=== PATIENT | female | born 1935 | race Caucasian/White ===

== ENCOUNTER → 2019-07-23 12:42 | Outpatient (CLI) | payer OTHER, SELFPAY ==
--- NOTE | 2019-07-23 12:44 | DI.MRI.S_ITS ---
PROCEDURE: MR SHOULDER RT WO CON INDICATIONS: decreased ROM and pain, suspect rotator cuff injury TECHNIQUE: Noncontrast oblique coronal T2 fast spin echo with fat saturation, oblique sagittal T1 spin echo and T2 fast spin echo with fat saturation, axial T1 spin echo and T2 fast spin echo with fat saturation through the shoulder. COMPARISON: None. FINDINGS: Image quality: Excellent. Rotator cuff: Supraspinatus tendinopathy is present with marked thickening. There is a high-grade partial-thickness bursal side tear measuring approximately 5 mm seen on coronal image 12 series 8. Infraspinatus tendinopathy with low-grade partial-thickness articular and bursal sided tear. The teres minor appears intact. Subscapularis tendinopathy and mild thickening. No definite atrophy of the rotator cuff musculature although there is fatty infiltration of the supraspinatus and infraspinatus muscles. Bones and bursae: No bone marrow contusions or fractures. Moderate acromioclavicular joint degeneration. The acromion demonstrates conventional anatomy, without an os acromiale. Severe subacromial-subdeltoid bursitis. Capsule and soft tissues: Labrum appears grossly intact. The long head of the biceps tendon demonstrates normal location and morphology. The rotator interval appears normal, without fibrosis. The coracohumeral ligament is normal in thickness. IMPRESSION: High-grade bursal sided partial-thickness tear of the supraspinatus tendon in a background of severe tendinopathy and thickening. Associated severe subacromial-subdeltoid bursitis. Infraspinatus tendinopathy with low-grade partial-thickness articular and bursal sided tear. Mild subscapularis tendinopathy. Dictated by: Stanton Doss M.D. on 07/23/2019 at 16:15 Approved by: Stanton Doss M.D. on 07/23/2019 at 16:21
== END ==
PROVIDERS: Family Provider Family Medicine; PCP Family Medicine; Visit Provider Physician Assistant
DX: M25.511 Pain in right shoulder (principal); M75.111 Incomplete rotator cuff tear or rupture of right shoulder, not specified as traumatic; M75.51 Bursitis of right shoulder; M67.911 Unspecified disorder of synovium and tendon, right shoulder
CPT/HCPCS: 73221

== ENCOUNTER → 2019-09-01 09:41 | Outpatient (CLI) | payer OTHER, SELFPAY ==
--- NOTE | 2019-09-01 09:43 | DI.NM.S_ITS ---
PROCEDURE: NM KARLA PERF SPECT REST & STR Rest and exercise myocardial perfusion SPECT with gated imaging and ejection fraction RADIOPHARMACEUTICAL: 27.1 mCi Tc-99m sestamibi IV at rest and 25.8 mCi Tc-99m sestamibi IV at peak exercise. A [id number]-crgylnir was performed. INDICATIONS: Shortness of breath TECHNIQUE: Radiopharmaceutical was injected at peak stress test, and also at rest. SPECT images were obtained. SPECT myocardial perfusion images were displayed in short axis, horizontal long axis, and vertical long axis views. Gated images were reviewed using NPC III software. COMPARISON: None. CARDIAC STRESS: A standard Ashish treadmill exercise tolerance test was performed by the patient under the supervision of an attending staff. The patient exercised for 4 minutes and10 seconds; functional aerobic impairment (MAGDY) is 0 %. Hemodynamic data: There is normal blood pressure and heart rate response to exercise stress. Patient achieved 92% of maximum predicted heart rate at peak exercise. Symptoms: Patient denied chest pain during exercise. EKG: Up to 1mm upsloping ST depression at peak exercise. No diagnostic EKG changes of ischemia; no ectopy. FINDINGS: Raw data: There is good myocardial labeling by radiotracer. No significant motion artifacts. Zfwk-yh-cxati ratio is 0.36 (normal is less than 0.38 for sestamibi tracer, and less than 0.50 for thallium tracer). Left ventricle function: Gated images demonstrate normal left ventricle wall thickening. No segmental wall motion abnormality. No transient ischemic dilation; TID is 1.11 (normal less than 1.3). The left ventricle resting end-diastolic volume is 59 mL. Left ventricle stress ejection fraction is >75% ; normal values are above 45%. Myocardial perfusion: There is normal distribution of activity in the left ventricular myocardium. No fixed or reversible perfusion defects. IMPRESSION: -Normal myocardial perfusion study. -Fair exercise capacity. -Low risk study. -Small, hypercontractile left ventricle, overestimating the LVEF. Dictated by: Jon Coles M.D. on 09/03/2019 at 17:52 Approved by: Jon Coles M.D. on 09/03/2019 at 17:56
--- NOTE | 2019-09-01 10:44 | PM.TREADMILL ---
Cardiac Stress Test Report Referral & Results Date Patient Seen: 09/01/19 Requesting provider: Maritza Cheema Indication: Shortness of breath Rest ECG: Unremarkable Procedure Note: Today following both written and verbal informed consent the patient was exercised according to a standard Ashish protocol patient went for a total of 4 minutes 10 seconds achieving a maximum heart rate of 126 maximum systolic blood pressure of 160. This is approximately 7.0 METS. Exercise was terminated at this point because of targets were met and chest pressure/shortness of breath also present. Patient was also given Cardiolite through a previously started Hep-Lock IV by the diagnostic imaging staff approximately 1 minute prior to the cessation of exercise. No ST-T segment changes identified Functional aerobic impairment rated 0 on the active scale Patient had occasional PACs and occasional supraventricular couplets that were symptomatic Impression: No ECG evidence of ischemia, please see perfusion imaging report as well Supraventricular dysrhythmia as above Please note: Actual ECG tracings can be found in the PACS system.
== END ==
PROVIDERS: PCP Family Medicine; Visit Provider Family Medicine
DX: R06.02 Shortness of breath (principal); I47.1 Supraventricular tachycardia
CPT/HCPCS: 78452; 93016; 93017; 93018; A9502

== ENCOUNTER → 2019-11-17 11:05 | Outpatient (CLI) | payer OTHER, SELFPAY ==
[2019-11-17 13:59] LABS: Alanine Aminotransferase 17 IU/L (<35); Albumin 4.2 g/dL (3.5-5.0); Albumin Globulin Ratio 1.3 (1.0-2.8); Alkaline Phosphatase 96 U/L (38-126); Aspartate Aminotransferase 27 IU/L (14-36); Bilirubin Total 0.4 mg/dL (0.2-1.3); Blood Urea Nitrogen 15 mg/dL (7-17); Calcium 9.5 mg/dL (8.4-10.2); Carbon Dioxide 29 mmol/L (22-32); Chloride 101 mmol/L (98-107); Cholesterol 242 mg/dL (140-199); Estimated Glomerular Filt Rate > 60.0 mL/min (>60); Globulin 3.2 g/dL (1.7-4.1); Glucose 92 mg/dL (80-110); HDL Cholesterol 78 mg/dL (40-60); HEMOLYSIS < 15 (0-50); LDL Cholesterol Calculated 148 mg/dL (<100); Potassium 4.6 mmol/L (3.4-5.1); Sodium 139 mmol/L (137-145); Total Protein 7.4 g/dL (6.3-8.2); Triglycerides 81 mg/dL (35-150)
[2019-11-17 14:26] LABS: TSH w/ Reflex to FT4 2.71 uIU/mL (0.47-4.68)
== END ==
PROVIDERS: PCP Family Medicine; Visit Provider Family Medicine
DX: M81.0 Age-related osteoporosis without current pathological fracture (principal); E78.5 Hyperlipidemia, unspecified
CPT/HCPCS: 36415; 80053; 80061; 82306; 84443

== ENCOUNTER → 2019-12-01 12:08 | Outpatient (CLI) | payer OTHER, SELFPAY ==
--- NOTE | 2019-12-01 | DI.MG.S_ITS ---
BILATERAL DIGITAL SCREENING MAMMOGRAM 3D/2D WITH CAD POST LUMPECTOMY: 12/01/2019 CLINICAL: Routine screening. Personal history of left breast cancer. Family history of breast cancer. Comparison is made to exams dated: 12/06/2015 mammogram, 10/26/2014 mammogram, and 10/21/2013 mammogram - [facility]. There are scattered fibroglandular elements in both breasts. Current study was also evaluated with a Computer Aided Detection (CAD) system. There are benign post operative findings in the left breast. No significant masses, calcifications, or other findings are seen in either breast. There has been no significant interval change. IMPRESSION: There is no mammographic evidence of malignancy. A 1 year screening mammogram is recommended. This exam was interpreted at Station ID: [id number]. NOTE: For mammograms, a report in lay terms will be sent to the patient. Approximately 15% of breast malignancies will not be visualized mammographically. In the management of a palpable breast mass, a negative mammogram must not discourage biopsy of a clinically suspicious lesion. Electronically Signed By: Addy gonzalez/ruthann:12/01/2019 13:01:03 letter sent: Normal Exam ACR BI-RADS Category 2: Benign Finding(s) 3342F
== END ==
PROVIDERS: PCP Family Medicine; Referring Provider Family Medicine; Visit Provider Family Medicine
DX: Z12.31 Encounter for screening mammogram for malignant neoplasm of breast (principal); Z85.3 Personal history of malignant neoplasm of breast; Z80.3 Family history of malignant neoplasm of breast; M85.88 Other specified disorders of bone density and structure, other site; Z78.0 Asymptomatic menopausal state; Z85.42 Personal history of malignant neoplasm of other parts of uterus
CPT/HCPCS: 77063; 77067; 77080

== ENCOUNTER → 2020-05-19 13:06 | Outpatient (CLI) | payer OTHER, SELFPAY ==
--- NOTE | 2020-05-19 13:07 | DI.RAD.S_ITS ---
PROCEDURE: XR HIP W PEL IF DONE RT 2V INDICATIONS: right groin pain, unable to bear weight TECHNIQUE: AP pelvis with lateral view(s) of the right hip(s). COMPARISON: None. FINDINGS: Bones: No fractures or dislocations. Pelvic ring appears intact. No suspicious bony lesions. Soft tissues: The visualized bowel gas pattern is normal. No suspicious soft tissue calcifications. IMPRESSION: Mild symmetric hip joint osteoarthritis, no trauma found. Dictated by: Dharmesh Velazquez M.D. on 05/19/2020 at 14:06 Approved by: Dharmesh Velazquez M.D. on 05/19/2020 at 14:07
== END ==
PROVIDERS: PCP Family Medicine; Referring Provider Family Medicine; Visit Provider Family Medicine
DX: M25.551 Pain in right hip (principal); M16.11 Unilateral primary osteoarthritis, right hip; R26.89 Other abnormalities of gait and mobility
CPT/HCPCS: 73502

== ENCOUNTER → 2020-12-08 15:57 | Outpatient (CLI) | payer OTHER, SELFPAY ==
--- NOTE | 2020-12-08 16:24 | DI.MG.S_ITS ---
Date: 12/08/2020 16:24 At the request of: SHARYN NUNEZ Procedure: MM screening mammo BI BILATERAL DIGITAL SCREENING MAMMOGRAM 3D/2D WITH CAD: 12/08/2020 CLINICAL: Routine screening. Breast cancer. Comparison is made to exams dated: 12/01/2019 mammogram, 12/06/2015 mammogram, and 10/26/2014 mammogram - [facility]. There are scattered fibroglandular elements in both breasts. Current study was also evaluated with a Computer Aided Detection (CAD) system. There are benign post operative findings in the left breast. No significant masses, calcifications, or other findings are seen in either breast. There has been no significant interval change. IMPRESSION: BENIGN There is no mammographic evidence of malignancy. A 1 year screening mammogram is recommended. This exam was interpreted at Station ID: [id number]. NOTE: For mammograms, a report in lay terms will be sent to the patient. Approximately 15% of breast malignancies will not be visualized mammographically. In the management of a palpable breast mass, a negative mammogram must not discourage biopsy of a clinically suspicious lesion. Electronically Signed By: Nathaniel guerrero/ruthann:12/09/2020 09:11:31 letter sent: Normal Exam ACR BI-RADS Category 2: Benign Finding(s) 3342F
== END ==
PROVIDERS: PCP Family Medicine; Referring Provider Family Medicine; Visit Provider Family Medicine
DX: Z12.31 Encounter for screening mammogram for malignant neoplasm of breast (principal); Z85.3 Personal history of malignant neoplasm of breast
CPT/HCPCS: 77063; 77067

== ENCOUNTER → 2021-01-05 11:14 | Outpatient (CLI) | payer OTHER, SELFPAY ==
--- NOTE | 2021-01-05 11:16 | DI.RAD.S_ITS ---
PROCEDURE: XR KNEE LT 3V INDICATIONS: left knee pain TECHNIQUE: 3 views of the knee were acquired. COMPARISON: [facility], , KNEE 3V LEFT, 09/18/2011, 15:44. FINDINGS: Bones: No fracture. Severe narrowing of the medial joint space. Scattered degenerative subchondral sclerosis and spurring. There is also severe patellofemoral joint space narrowing. Soft tissues: Trace joint effusion. IMPRESSION: Severe left knee joint degeneration, which appears progressed since 09/18/11 Trace joint effusion Dictated by: Stanton Doss M.D. on 01/05/2021 at 13:09 Approved by: Stanton Doss M.D. on 01/05/2021 at 13:10
--- NOTE | 2021-01-05 11:16 | DI.RAD.S_ITS ---
PROCEDURE: XR HIP W PEL IF DONE JOHN MIN 4V INDICATIONS: left knee pain TECHNIQUE: AP pelvis with lateral view(s) of the left and right hip(s). COMPARISON: [facility], , XR HIP W PEL IF DONE RT 2V, 05/19/2020, 12:58. FINDINGS: Bones: No fracture. Lumbar spondylosis and facet disease. Moderate bilateral hip joint degeneration. Scattered degenerative subchondral sclerosis and spurring. Soft tissues: The visualized bowel gas pattern is normal. No suspicious soft tissue calcifications. IMPRESSION: Moderate bilateral hip joint degeneration, unchanged since 05/19/20 Dictated by: Stanton Doss M.D. on 01/05/2021 at 12:47 Approved by: Stanton Doss M.D. on 01/05/2021 at 13:05
== END ==
PROVIDERS: PCP Family Medicine; Referring Provider Family Medicine; Visit Provider Family Medicine
DX: M25.559 Pain in unspecified hip (principal); R26.89 Other abnormalities of gait and mobility; M25.562 Pain in left knee
CPT/HCPCS: 73522; 73562

== ENCOUNTER → 2021-01-05 11:20 | Outpatient (CLI) | payer OTHER, SELFPAY | PROVIDERS: PCP Family Medicine; Referring Provider Family Medicine; Visit Provider Family Medicine | DX: M25.559 Pain in unspecified hip (principal); M25.569 Pain in unspecified knee ==

== ENCOUNTER 2021-02-25 09:45 | Outpatient (RCR) | payer OTHER, SELFPAY ==
--- NOTE | 2021-01-31 15:44 | PT.OIE ---
Current Diagnoses Strain of muscle, fascia and tendon of left hip, initial encounter (01/31/21) Strain of unspecified muscle(s) and tendon(s) at lower leg level, left leg, initial encounter (01/31/21) Past Medical History (Last Updated 09/14/19 @ 16:15 by Maritza Cheema DO) Hearing loss Past Surgical History (Last Reviewed 02/27/19 @ 12:50 by Valentine Edwards MD) Status post surgery (06/02/15) Status post tonsillectomy and adenoidectomy Visit Care Team Role Provider Type Maritza Cheema DO Attending Provider Physician Primary Care Provider Referring Provider Specialty: Family Practice Address: [address] [place] [address], [facility] [address], [place], [facility] Email: [email or web address] Physical Therapy Initial Evaluation PT-OP-A Visit Information Start: 01/28/21 15:25 Freq: Status: Active Protocol: Document 01/31/21 12:41 MB (Rec: 01/31/21 12:53 MB [id number]) Out-Patient Physical Therapy Visit Information Visit Information Visit Type Initial Evaluation Visit Note [facility], Medicare Adv Visit Start Time 12:41 Visit Stop Time 13:13 Total Visit Minutes 32 Visit Number 1 Evaluation Information Evaluation Date 01/31/21 PT-OP-B Current Condition Start: 01/28/21 15:25 Freq: Status: Active Protocol: Document 01/31/21 12:41 MB (Rec: 01/31/21 12:53 MB [id number]) Current Condition History of Current Condition Onset Date 1 year Current Complaints Left upper thigh and knee pain History of Current Condition Pt reports 5/10 left upper thigh and knee pain. She reports 4/10 lateral left hip pain. She had a fall a couple of years ago and injured her right ankle. It got better and then she started having pain with her left leg. Pt is very active and has done yoga most of her adult life. 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 Last summer, she did a 5.5 mile hike in the mountains with younger friends and then had increased pain in her left leg. Pt has the most pain coming downhill. She walks in [email or web address] 3x/wk and can only walk 1/[address] around. She is playing pickle ball and gets some upper leg paini on the left. She has two flights of steps at home and has to pull herself up with the rail. Walking sticks are a bother as they are noisy. She does not wake up with pain and occ she does have discomfort when rolling over in bed. PMH: essentially negative: hearing loss Prior Treatments and Tests X-ray left hip 01/05/21: mod B hip degeneration X-ray left knee 01/05/21: severe left knee joint degenerative changes which have progressed Treatment Goals Patient/Caregiver Goals To decrease pain PT-OP-C Subjective Start: 01/28/21 15:25 Freq: Status: Active Protocol: Document 01/31/21 12:41 MB (Rec: 01/31/21 12:53 MB [id number]) OP-PT Subjective Patient Comments Patient Comments See history of current condition PT-OP-G Mobility & Gait Start: 01/28/21 15:25 Freq: Status: Active Protocol: Document 01/31/21 12:41 MB (Rec: 01/31/21 15:44 MB [id number]) OP Gait Assessment Gait Gait Assistance Required: Independent Distance (Feet) 70 Able to Maintain Weight Bearing Status Yes During Gait Gait Deviations General Gait Pattern Antalgic,Decreased Stride Length Factors Limiting Gait Function Factors Limiting Gait Function Pain Comments Gait Comments Pt presents with slower, antalgic gait pattern, favoring her left leg. She presents with B knee flexion and forward flexed posture with gait, limited knee and hip extension PT-OP-J Posture/Palpation/Skin Start: 01/28/21 15:25 Freq: Status: Active Protocol: Document 01/31/21 12:41 MB (Rec: 01/31/21 15:44 MB [id number]) Posture Evaluation Comments Posture Comments Standing posture with shoes off: forward head, mild Dowager's hump, increased lumbar lordosis, B knee flexion in standing, anterior tilt pelvis, B overpronation rear feet. From posterior: some lateral curvature cervical spine, left shoulder higher than the right, lower right scapula, right iliac crest higher, left tibial torsion and increased size of left knee compared to the right and increased valgus left. Palpation Assessment Location LEs Palpation Details Increased tension distal left vastus lateralis PT-OP-K Range of Motion Start: 01/28/21 15:25 Freq: Status: Active Protocol: Document 01/31/21 12:41 MB (Rec: 01/31/21 13:27 MB [id number]) Knee Goniometric Range of Motion Knee ROM Limitations Comments Right knee AROM in supine: 11- 136 deg Left knee AROM in supine: 6- 136 deg PT-OP-M Strength Start: 01/28/21 15:25 Freq: Status: Active Protocol: Document 01/31/21 12:41 MB (Rec: 01/31/21 15:44 MB [id number]) Hip Strength Hip Manual Muscle Testing Left Flexion (L2) 4 Good Abduction 4 Good Comments Pt guards passive left hip ER and IR and prevents PT from performing Scour to r/o hip impingement Right Flexion (L2) 5 Normal Abduction 5 Normal Comments Pt guards PROM right ER/IR and both are very limited Knee Strength Knee Manual Muscle Testing Left Flexion (S2) 4 Good Extension (L3) 4 Good Comments Guarding vs pain, pt is not descriptive, does appear to have some left thigh pain Right Flexion (S2) 5 Normal Extension (L3) 5 Normal Ankle/Foot Strength Ankle and Foot Manual Muscle Testing Left Dorsiflexion (L4) 5 Normal Inversion 4 Good Eversion (S1) 5 Normal Right Dorsiflexion (L4) 5 Normal Inversion 5 Normal Eversion (S1) 5 Normal Toe Strength Toe Manual Muscle Testing Left Great Toe Extension 5 Normal Right Great Toe Extension 5 Normal PT-OP-T Assessment and Plan Start: 01/28/21 15:25 Freq: Status: Active Protocol: Document 01/31/21 12:41 MB (Rec: 01/31/21 13:26 MB [id number]) Physical Therapy Assessment Rehab Potential Rehabilitation Potential Fair Evaluation Complexity Number of Personal Factors/Comorbidities 1-2 Number of Body Systems Impaired 1-2 Clinical Presentation at Evaluation Evolving Impairments Impairments Activity Tolerance,Balance, Edema,Functional Activities, Functional Mobility,Gait,Pain, Posture,ROM,Soft Tissue Mobility,Strength Other Concerns Fall Risk Yes Goals 4 Resource Economist Goal (LTG) Pt will perform WNLs on a standardized balance test to decrease fall risk by 04/02/21. LTG Duration 8 weeks 3 Prison Goal (LTG) Pt will gait train at least 1200 feet in 6 minutes without AD to improve community ambulation and hiking by . LTG Duration 8 weeks 2 Prison Goal (LTG) Pt will perform progressive HEP with I including pelvic realignment, postural, flexibility, balance, gait and strengthening exercises to improve ROM, pain and strength by 04/02/21. LTG Duration 8 weeks 1 Prison Goal (LTG) Pt will present with an improved LEF score to reflect no more than 30% impairment to improve functional mobility by 04/02/21. LTG Duration 8 weeks Assessment Summary Assessment Pt is a pleasant 85 y/o female presenting with unremarkable medical history for her age. X -rays 01/05/21 revealed severe degenerative changes of her left knee. She reports pain that is the worst in her left thigh. She is tender to gentle palpation today, presents with joint and postural changes, pelvic obliquities and weakness in her LLE. Her left knee is larger than the right and muscle palpation is tightness in the vastus lateralis of the left side. She will benefit from PT to improve alignment, flexibility and strength. Treatment will include manual work, therapeutic exercise, gait and balance. Barriers include advanced age and degeneration, pt to be OOT near the start of PT treatment course, high co-pay and pt not wanting to schedule too many appointments . Physical Therapy Plan Frequency and Duration Frequency of Treatment 2x/Week Duration of Treatment 8 weeks Plan of Care Start Date 01/31/21 Plan of Care End Date 04/04/21 Therapeutic Interventions Therapeutic Interventions Aquatic Therapy,Balance Training,Canalithic Repositioning,Gait Training, Home Exercise Program,Joint Mobilizations,Manual Therapy, Neuromuscular Re-education, Patient/Caregiver Education, Self-Care/Home Management,Soft Tissue Mobilization,Taping, Therapeutic Activities, Therapeutic Exercises Modalities Cold Pack/Ice Massage Next Visit Focus/Plan Next Note Type Treatment Note Next Visit Plan Consider upright bike, Tigre and hamstring stretches, pelvic realignment exercises Progress gait training including assessing gait with her hiking sticks
--- NOTE | 2021-01-31 15:44 | PT.OPPOC ---
Physical, Occupational & Speech Therapy At [facility] Current Diagnoses Strain of muscle, fascia and tendon of left hip, initial encounter (01/31/21) Strain of unspecified muscle(s) and tendon(s) at lower leg level, left leg, initial encounter (01/31/21) Visit Care Team Role Provider Type Maritza Cheema DO Attending Provider Physician Primary Care Provider Referring Provider Specialty: Family Practice Address: [address] [place] [address], [facility] [address], [place], [address] Email: [email or web address] Plan Of Care PT-OP-T Assessment and Plan Start: 01/28/21 15:25 Freq: Status: Active Protocol: Document 01/31/21 12:41 MB (Rec: 01/31/21 13:26 MB [id number]) Physical Therapy Assessment Rehab Potential Rehabilitation Potential Fair Evaluation Complexity Number of Personal Factors/Comorbidities 1-2 Number of Body Systems Impaired 1-2 Clinical Presentation at Evaluation Evolving Impairments Impairments Activity Tolerance,Balance, Edema,Functional Activities, Functional Mobility,Gait,Pain, Posture,ROM,Soft Tissue Mobility,Strength Other Concerns Fall Risk Yes Goals 4 Senior Care Goal (LTG) Pt will perform WNLs on a standardized balance test to decrease fall risk by 04/02/21. LTG Duration 8 weeks 3 Front Office Associate Goal (LTG) Pt will gait train at least 1200 feet in 6 minutes without AD to improve community ambulation and hiking by . LTG Duration 8 weeks 2 Senior Care Goal (LTG) Pt will perform progressive HEP with I including pelvic realignment, postural, flexibility, balance, gait and strengthening exercises to improve ROM, pain and strength by 04/02/21. LTG Duration 8 weeks 1 Senior Care Goal (LTG) Pt will present with an improved LEF score to reflect no more than 30% impairment to improve functional mobility by 04/02/21. LTG Duration 8 weeks Assessment Summary Assessment Pt is a pleasant 85 y/o female presenting with unremarkable medical history for her age. X -rays 01/05/21 revealed severe degenerative changes of her left knee. She reports pain that is the worst in her left thigh. She is tender to gentle palpation today, presents with joint and postural changes, pelvic obliquities and weakness in her LLE. Her left knee is larger than the right and muscle palpation is tightness in the vastus lateralis of the left side. She will benefit from PT to improve alignment, flexibility and strength. Treatment will include manual work, therapeutic exercise, gait and balance. Barriers include advanced age and degeneration, pt to be OOT near the start of PT treatment course, high co-pay and pt not wanting to schedule too many appointments . Physical Therapy Plan Frequency and Duration Frequency of Treatment 2x/Week Duration of Treatment 8 weeks Plan of Care Start Date 01/31/21 Plan of Care End Date 04/04/21 Therapeutic Interventions Therapeutic Interventions Aquatic Therapy,Balance Training,Canalithic Repositioning,Gait Training, Home Exercise Program,Joint Mobilizations,Manual Therapy, Neuromuscular Re-education, Patient/Caregiver Education, Self-Care/Home Management,Soft Tissue Mobilization,Taping, Therapeutic Activities, Therapeutic Exercises Modalities Cold Pack/Ice Massage Next Visit Focus/Plan Next Note Type Treatment Note Next Visit Plan Consider upright bike, Tigre and hamstring stretches, pelvic realignment exercises Progress gait training including assessing gait with her hiking sticks Plan of Care Dates Plan of Care Start Date 01/31/21 Plan of Care End Date 04/04/21 Electronically Signed by: Cristy Irvin, PT 01/31/21 [id number] Please Sign and Return: I have reviewed this Plan of Care and certify that the skilled therapy services above are required to meet the patient?s needs. Physician Signature Date Printed Name and Credentials Clinical Instructor Signature Printed Name and Credentials
--- NOTE | 2021-02-03 11:11 | PT.OTN ---
Current Diagnoses Strain of muscle, fascia and tendon of left hip, initial encounter (02/03/21) Strain of unspecified muscle(s) and tendon(s) at lower leg level, left leg, initial encounter (02/03/21) Physical Therapy Treatment Note PT-OP-A Visit Information Start: 01/28/21 15:25 Freq: Status: Active Protocol: Document 02/03/21 10:32 MB (Rec: 02/03/21 11:07 MB [id number]) Out-Patient Physical Therapy Visit Information Visit Information Visit Type Treatment Note Visit Note [facility], Medicare Adv Visit Start Time 10:32 Visit Stop Time 11:10 Total Visit Minutes 38 Visit Number 2 PT-OP-B Current Condition Start: 01/28/21 15:25 Freq: Status: Active Protocol: Document 01/31/21 12:41 MB (Rec: 01/31/21 12:53 MB [id number]) Current Condition History of Current Condition Onset Date 1 year Current Complaints Left upper thigh and knee pain History of Current Condition Pt reports 5/10 left upper thigh and knee pain. She reports 4/10 lateral left hip pain. She had a fall a couple of years ago and injured her right ankle. It got better and then she started having pain with her left leg. Pt is very active and has done yoga most of her adult life. She was doing blue crab[place] hiking and was fine. Last summer, she did a 5.5 mile hike in the mountains with younger friends and then had increased pain in her left leg. Pt has the most pain coming downhill. She walks in [facility] 3x/wk and can only walk 1/[address] around. She is playing pickle ball and gets some upper leg paini on the left. She has two flights of steps at home and has to pull herself up with the rail. Walking sticks are a bother as they are noisy. She does not wake up with pain and occ she does have discomfort when rolling over in bed. 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 Pt reports constant pain in her left upper thigh with being up. She brings in walking stick and uses on her right side. PT-OP-G Mobility & Gait Start: 01/28/21 15:25 Freq: Status: Active Protocol: Document 01/31/21 12:41 MB (Rec: 01/31/21 15:44 MB [id number]) OP Gait Assessment Gait Gait Assistance Required: Independent Distance (Feet) 70 Able to Maintain Weight Bearing Status Yes During Gait Gait Deviations General Gait Pattern Antalgic,Decreased Stride Length Factors Limiting Gait Function Factors Limiting Gait Function Pain Comments Gait Comments Pt presents with slower, antalgic gait pattern, favoring her left leg. She presents with B knee flexion and forward flexed posture with gait, limited knee and hip extension PT-OP-J Posture/Palpation/Skin Start: 01/28/21 15:25 Freq: Status: Active Protocol: Document 01/31/21 12:41 MB (Rec: 01/31/21 15:44 MB [id number]) Posture Evaluation Comments Posture Comments Standing posture with shoes off: forward head, mild Dowager's hump, increased lumbar lordosis, B knee flexion in standing, anterior tilt pelvis, B overpronation rear feet. From posterior: some lateral curvature cervical spine, left shoulder higher than the right, lower right scapula, right iliac crest higher, left tibial torsion and increased size of left knee compared to the right and increased valgus left. Palpation Assessment Location LEs Palpation Details Increased tension distal left vastus lateralis PT-OP-K Range of Motion Start: 01/28/21 15:25 Freq: Status: Active Protocol: Document 01/31/21 12:41 MB (Rec: 01/31/21 13:27 MB [id number]) Knee Goniometric Range of Motion Knee ROM Limitations Comments Right knee AROM in supine: 11- 136 deg Left knee AROM in supine: 6- 136 deg PT-OP-M Strength Start: 01/28/21 15:25 Freq: Status: Active Protocol: Document 01/31/21 12:41 MB (Rec: 01/31/21 15:44 MB [id number]) Hip Strength Hip Manual Muscle Testing Left Flexion (L2) 4 Good Abduction 4 Good Comments Pt guards passive left hip ER and IR and prevents PT from performing Scour to r/o hip impingement Right Flexion (L2) 5 Normal Abduction 5 Normal Comments Pt guards PROM right ER/IR and both are very limited Knee Strength Knee Manual Muscle Testing Left Flexion (S2) 4 Good Extension (L3) 4 Good Comments Guarding vs pain, pt is not descriptive, does appear to have some left thigh pain Right Flexion (S2) 5 Normal Extension (L3) 5 Normal Ankle/Foot Strength Ankle and Foot Manual Muscle Testing Left Dorsiflexion (L4) 5 Normal Inversion 4 Good Eversion (S1) 5 Normal Right Dorsiflexion (L4) 5 Normal Inversion 5 Normal Eversion (S1) 5 Normal Toe Strength Toe Manual Muscle Testing Left Great Toe Extension 5 Normal Right Great Toe Extension 5 Normal PT-OP-Q Treatments Start: 01/28/21 15:25 Freq: Status: Active Protocol: Document 02/03/21 10:32 MB (Rec: 02/03/21 11:07 MB [id number]) Neuro Re-Education Treatment Movement Re-Education Movement Re-education Activities Gentle STM left rectus femoris , anterior and posterior vastus lateralis, TFL, grade II PA mobs through left femur, gentle patellar mobs, MWM rectus with pt performing slow HS PT-OP-T Assessment and Plan Start: 01/28/21 15:25 Freq: Status: Active Protocol: Document 02/03/21 10:32 MB (Rec: 02/03/21 11:07 MB [id number]) Physical Therapy Assessment Rehab Potential Rehabilitation Potential Fair Evaluation Complexity Number of Personal Factors/Comorbidities 1-2 Number of Body Systems Impaired 1-2 Clinical Presentation at Evaluation Evolving Impairments Impairments Activity Tolerance,Balance, Edema,Functional Activities, Functional Mobility,Gait,Pain, Posture,ROM,Soft Tissue Mobility,Strength Other Concerns Fall Risk Yes Goals 4 Transfer Knitter Goal (LTG) Pt will perform WNLs on a standardized balance test to decrease fall risk by 04/02/21. LTG Duration 8 weeks 3 Transfer Knitter Goal (LTG) Pt will gait train at least 1200 feet in 6 minutes without AD to improve community ambulation and hiking by . LTG Duration 8 weeks 2 Transfer Knitter Goal (LTG) Pt will perform progressive HEP with I including pelvic realignment, postural, flexibility, balance, gait and strengthening exercises to improve ROM, pain and strength by 04/02/21. LTG Duration 8 weeks 1 Prison Goal (LTG) Pt will present with an improved LEF score to reflect no more than 30% impairment to improve functional mobility by 04/02/21. LTG Duration 8 weeks Assessment Summary Assessment Initiated manual work today and pt responds well initially . Con't to monitor and con't manual work and progressive flexibility and alignment exercises. Con't to monitor to see if there may be a nerve or vascular component to symptoms on top of musculoskeletal and joint degeneration. Physical Therapy Plan Frequency and Duration Frequency of Treatment 2x/Week Duration of Treatment 8 weeks Plan of Care Start Date 01/31/21 Plan of Care End Date 04/04/21 Therapeutic Interventions Therapeutic Interventions Aquatic Therapy,Balance Training,Canalithic Repositioning,Gait Training, Home Exercise Program,Joint Mobilizations,Manual Therapy, Neuromuscular Re-education, Patient/Caregiver Education, Self-Care/Home Management,Soft Tissue Mobilization,Taping, Therapeutic Activities, Therapeutic Exercises Modalities Cold Pack/Ice Massage Next Visit Focus/Plan Next Note Type Treatment Note Next Visit Plan Consider upright bike, Tigre and hamstring stretches, pelvic realignment exercises, rolling pin massage quads
--- NOTE | 2021-02-10 08:56 | PT.OTN ---
Current Diagnoses Strain of muscle, fascia and tendon of left hip, initial encounter (02/10/21) Strain of unspecified muscle(s) and tendon(s) at lower leg level, left leg, initial encounter (02/10/21) Physical Therapy Treatment Note PT-OP-A Visit Information Start: 01/28/21 15:25 Freq: Status: Active Protocol: Document 02/10/21 08:14 MB (Rec: 02/10/21 08:51 MB [id number]) Out-Patient Physical Therapy Visit Information Visit Information Visit Type Treatment Note Visit Note [facility], Medicare Adv Visit Start Time 08:14 Visit Stop Time 08:55 Total Visit Minutes 41 Visit Number 3 PT-OP-B Current Condition Start: 01/28/21 15:25 Freq: Status: Active Protocol: Document 01/31/21 12:41 MB (Rec: 01/31/21 12:53 MB [id number]) Current Condition History of Current Condition Onset Date 1 year Current Complaints Left upper thigh and knee pain History of Current Condition Pt reports 5/10 left upper thigh and knee pain. She reports 4/10 lateral left hip pain. She had a fall a couple of years ago and injured her right ankle. It got better and then she started having pain with her left leg. Pt is very active and has done yoga most of her adult life. 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 Last summer, she did a 5.5 mile hike in the mountains with younger friends and then had increased pain in her left leg. Pt has the most pain coming downhill. She walks in [facility] 3x/wk and can only walk 1/[address] around. She is playing pickle ball and gets some upper leg paini on the left. She has two flights of steps at home and has to pull herself up with the rail. Walking sticks are a bother as they are noisy. She does not wake up with pain and occ she does have discomfort when rolling over in bed. 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 Pt states that her hip feels good today and hurt yesterday when doing pickle ball. PT-OP-G Mobility & Gait Start: 01/28/21 15:25 Freq: Status: Active Protocol: Document 01/31/21 12:41 MB (Rec: 01/31/21 15:44 MB [id number]) OP Gait Assessment Gait Gait Assistance Required: Independent Distance (Feet) 70 Able to Maintain Weight Bearing Status Yes During Gait Gait Deviations General Gait Pattern Antalgic,Decreased Stride Length Factors Limiting Gait Function Factors Limiting Gait Function Pain Comments Gait Comments Pt presents with slower, antalgic gait pattern, favoring her left leg. She presents with B knee flexion and forward flexed posture with gait, limited knee and hip extension PT-OP-J Posture/Palpation/Skin Start: 01/28/21 15:25 Freq: Status: Active Protocol: Document 01/31/21 12:41 MB (Rec: 01/31/21 15:44 MB [id number]) Posture Evaluation Comments Posture Comments Standing posture with shoes off: forward head, mild Dowager's hump, increased lumbar lordosis, B knee flexion in standing, anterior tilt pelvis, B overpronation rear feet. From posterior: some lateral curvature cervical spine, left shoulder higher than the right, lower right scapula, right iliac crest higher, left tibial torsion and increased size of left knee compared to the right and increased valgus left. Palpation Assessment Location LEs Palpation Details Increased tension distal left vastus lateralis PT-OP-K Range of Motion Start: 01/28/21 15:25 Freq: Status: Active Protocol: Document 01/31/21 12:41 MB (Rec: 01/31/21 13:27 MB [id number]) Knee Goniometric Range of Motion Knee ROM Limitations Comments Right knee AROM in supine: 11- 136 deg Left knee AROM in supine: 6- 136 deg PT-OP-M Strength Start: 01/28/21 15:25 Freq: Status: Active Protocol: Document 01/31/21 12:41 MB (Rec: 01/31/21 15:44 MB [id number]) Hip Strength Hip Manual Muscle Testing Left Flexion (L2) 4 Good Abduction 4 Good Comments Pt guards passive left hip ER and IR and prevents PT from performing Scour to r/o hip impingement Right Flexion (L2) 5 Normal Abduction 5 Normal Comments Pt guards PROM right ER/IR and both are very limited Knee Strength Knee Manual Muscle Testing Left Flexion (S2) 4 Good Extension (L3) 4 Good Comments Guarding vs pain, pt is not descriptive, does appear to have some left thigh pain Right Flexion (S2) 5 Normal Extension (L3) 5 Normal Ankle/Foot Strength Ankle and Foot Manual Muscle Testing Left Dorsiflexion (L4) 5 Normal Inversion 4 Good Eversion (S1) 5 Normal Right Dorsiflexion (L4) 5 Normal Inversion 5 Normal Eversion (S1) 5 Normal Toe Strength Toe Manual Muscle Testing Left Great Toe Extension 5 Normal Right Great Toe Extension 5 Normal PT-OP-Q Treatments Start: 01/28/21 15:25 Freq: Status: Active Protocol: Document 02/10/21 08:14 MB (Rec: 02/10/21 08:51 MB [id number]) Therapeutic Exercises Supine Exercises Tigre stretch Side bilateral Comments 20 sec with cues to tip pelvis up and engage core Hamstring stretch Side bilateral Comments Hands behind thigh and pt pumping 20-30 sec Pelvic realignment exercises Side bilateral Comments 5 reps, 3 sec hold all exercises Sitting Exercises Rolling pin self-massage Side bilateral Comments Left more than right, cues for straight leg, see saw motion Self-Care/Home Management Treatment Education Other Education Ed pt in benefits of not crossing legs when sitting, consider bringing in her therapy ball to practice sitting on and other exercises PT-OP-T Assessment and Plan Start: 01/28/21 15:25 Freq: Status: Active Protocol: Document 02/10/21 08:14 MB (Rec: 02/10/21 08:51 MB [id number]) Physical Therapy Assessment Rehab Potential Rehabilitation Potential Fair Evaluation Complexity Number of Personal Factors/Comorbidities 1-2 Number of Body Systems Impaired 1-2 Clinical Presentation at Evaluation Evolving Impairments Impairments Activity Tolerance,Balance, Edema,Functional Activities, Functional Mobility,Gait,Pain, Posture,ROM,Soft Tissue Mobility,Strength Other Concerns Fall Risk Yes Goals 4 Splitter Operator Goal (LTG) Pt will perform WNLs on a standardized balance test to decrease fall risk by 04/02/21. LTG Duration 8 weeks 3 Residential Goal (LTG) Pt will gait train at least 1200 feet in 6 minutes without AD to improve community ambulation and hiking by . LTG Duration 8 weeks 2 Residential Goal (LTG) Pt will perform progressive HEP with I including pelvic realignment, postural, flexibility, balance, gait and strengthening exercises to improve ROM, pain and strength by 04/02/21. LTG Duration 8 weeks 1 Residential Goal (LTG) Pt will present with an improved LEF score to reflect no more than 30% impairment to improve functional mobility by 04/02/21. LTG Duration 8 weeks Assessment Summary Assessment Extensive cues for slowing down exercises, how to perform and not to overdo it. Pt has quite a bit of trouble with this today and will con't to practice as needed and ed pt to stop if she has pain. Con't to monitor her response to PT . Physical Therapy Plan Frequency and Duration Frequency of Treatment 2x/Week Duration of Treatment 8 weeks Plan of Care Start Date 01/31/21 Plan of Care End Date 04/04/21 Therapeutic Interventions Therapeutic Interventions Aquatic Therapy,Balance Training,Canalithic Repositioning,Gait Training, Home Exercise Program,Joint Mobilizations,Manual Therapy, Neuromuscular Re-education, Patient/Caregiver Education, Self-Care/Home Management,Soft Tissue Mobilization,Taping, Therapeutic Activities, Therapeutic Exercises Modalities Cold Pack/Ice Massage Next Visit Focus/Plan Next Note Type Treatment Note Next Visit Plan Consider upright bike, therapy ball exercise review and sitting on it, core work, hip rotator stretch
--- NOTE | 2021-02-21 14:33 | PT.OTN ---
Current Diagnoses Strain of muscle, fascia and tendon of left hip, initial encounter (02/21/21) Strain of unspecified muscle(s) and tendon(s) at lower leg level, left leg, initial encounter (02/21/21) Physical Therapy Treatment Note PT-OP-A Visit Information Start: 01/28/21 15:25 Freq: Status: Active Protocol: Document 02/21/21 13:50 SP (Rec: 02/21/21 14:34 SP [id number]) Out-Patient Physical Therapy Visit Information Visit Information Visit Type Treatment Note Visit Note [facility], Medicare Adv Visit Start Time 13:50 Visit Stop Time 14:33 Total Visit Minutes 43 Visit Number 4 Number of BENEFITS OFFICER Visits 1 Evaluation Information Evaluation Date 01/31/21 PT-OP-B Current Condition Start: 01/28/21 15:25 Freq: Status: Active Protocol: Document 01/31/21 12:41 MB (Rec: 01/31/21 12:53 MB [id number]) Current Condition History of Current Condition Onset Date 1 year Current Complaints Left upper thigh and knee pain History of Current Condition Pt reports 5/10 left upper thigh and knee pain. She reports 4/10 lateral left hip pain. She had a fall a couple of years ago and injured her right ankle. It got better and then she started having pain with her left leg. Pt is very active and has done yoga most of her adult life. 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 Last summer, she did a 5.5 mile hike in the mountains with younger friends and then had increased pain in her left leg. Pt has the most pain coming downhill. She walks in [facility] 3x/wk and can only walk 1/[address] around. She is playing pickle ball and gets some upper leg paini on the left. She has two flights of steps at home and has to pull herself up with the rail. Walking sticks are a bother as they are noisy. She does not wake up with pain and occ she does have discomfort when rolling over in bed. PMH: essentially negative: hearing loss Prior Treatments and Tests X-ray left hip 01/05/21: mod B hip degeneration X-ray left knee 01/05/21: severe left knee joint degenerative changes which have progressed Treatment Goals Patient/Caregiver Goals To decrease pain PT-OP-C Subjective Start: 01/28/21 15:25 Freq: Status: Active Protocol: Document 02/21/21 13:50 SP (Rec: 02/21/21 14:34 SP [id number]) OP-PT Subjective Patient Comments Patient Comments I have been on vacation and not doing exercises since last tx but did some this am. I was able to walk about 7 miles over vacation and felt more limber so need to do more here at home at [facility]. PT-OP-G Mobility & Gait Start: 01/28/21 15:25 Freq: Status: Active Protocol: Document 01/31/21 12:41 MB (Rec: 01/31/21 15:44 MB [id number]) OP Gait Assessment Gait Gait Assistance Required: Independent Distance (Feet) 70 Able to Maintain Weight Bearing Status Yes During Gait Gait Deviations General Gait Pattern Antalgic,Decreased Stride Length Factors Limiting Gait Function Factors Limiting Gait Function Pain Comments Gait Comments Pt presents with slower, antalgic gait pattern, favoring her left leg. She presents with B knee flexion and forward flexed posture with gait, limited knee and hip extension PT-OP-J Posture/Palpation/Skin Start: 01/28/21 15:25 Freq: Status: Active Protocol: Document 01/31/21 12:41 MB (Rec: 01/31/21 15:44 MB [id number]) Posture Evaluation Comments Posture Comments Standing posture with shoes off: forward head, mild Dowager's hump, increased lumbar lordosis, B knee flexion in standing, anterior tilt pelvis, B overpronation rear feet. From posterior: some lateral curvature cervical spine, left shoulder higher than the right, lower right scapula, right iliac crest higher, left tibial torsion and increased size of left knee compared to the right and increased valgus left. Palpation Assessment Location LEs Palpation Details Increased tension distal left vastus lateralis PT-OP-K Range of Motion Start: 01/28/21 15:25 Freq: Status: Active Protocol: Document 01/31/21 12:41 MB (Rec: 01/31/21 13:27 MB [id number]) Knee Goniometric Range of Motion Knee ROM Limitations Comments Right knee AROM in supine: 11- 136 deg Left knee AROM in supine: 6- 136 deg PT-OP-M Strength Start: 01/28/21 15:25 Freq: Status: Active Protocol: Document 01/31/21 12:41 MB (Rec: 01/31/21 15:44 MB [id number]) Hip Strength Hip Manual Muscle Testing Left Flexion (L2) 4 Good Abduction 4 Good Comments Pt guards passive left hip ER and IR and prevents PT from performing Scour to r/o hip impingement Right Flexion (L2) 5 Normal Abduction 5 Normal Comments Pt guards PROM right ER/IR and both are very limited Knee Strength Knee Manual Muscle Testing Left Flexion (S2) 4 Good Extension (L3) 4 Good Comments Guarding vs pain, pt is not descriptive, does appear to have some left thigh pain Right Flexion (S2) 5 Normal Extension (L3) 5 Normal Ankle/Foot Strength Ankle and Foot Manual Muscle Testing Left Dorsiflexion (L4) 5 Normal Inversion 4 Good Eversion (S1) 5 Normal Right Dorsiflexion (L4) 5 Normal Inversion 5 Normal Eversion (S1) 5 Normal Toe Strength Toe Manual Muscle Testing Left Great Toe Extension 5 Normal Right Great Toe Extension 5 Normal PT-OP-Q Treatments Start: 01/28/21 15:25 Freq: Status: Active Protocol: Document 02/21/21 13:50 SP (Rec: 02/21/21 14:34 SP [id number]) Therapeutic Exercises Supine Exercises DKTC w/ Tball Supine Exercise Name own home HEP Equipment Used 65cm Tball Reps/Minutes x8 Comments cued slow pacing control bridge LE on ball Supine Exercise Name review own HEP Equipment Used 65 cm Tball Reps/Minutes x10 Comments cued PPT awareness Lumbar Trunk Rotation Supine Exercise Name own home HEP Side bilateral Equipment Used 65 cm Tball Reps/Minutes x8 R and L Comments cued slow core control Tigre stretch Supine Exercise Name cued angle body more on table so allow safety at edge Side bilateral Reps/Minutes 20 sec with cues to tip pelvis up and engage core Comments more of a stretch on L than R Hamstring stretch Side bilateral Reps/Minutes hands behing thigh vs strap use Comments cued can add ankle pumping 20- 30 sec if not clicking in knee Pelvic realignment exercises Side bilateral Reps/Minutes 5 reps, 3 sec hold all exercises Comments cued easy muscle engagement Sitting Exercises Seated Tball Sitting Exercise Name foot lift Equipment Used 65 cm Tball Reps/Minutes x8 each Comments cued slow core pacing control w/ tall posture pelvic tilts on Tball Sitting Exercise Name 12, 6, 3, 9 O'clock Equipment Used 65cm Tball, next to table for safety contact PRN Reps/Minutes x8 reps each Comments cued slow core pacing control w/ tall posture Rolling pin self-massage Sitting Exercise Name rolling pin L>R Side bilateral Comments cues for straight leg, see saw motion, racquetball PT-OP-T Assessment and Plan Start: 01/28/21 15:25 Freq: Status: Active Protocol: Document 02/21/21 13:50 SP (Rec: 02/21/21 14:34 SP [id number]) Physical Therapy Assessment Goals 4 Alf Goal (LTG) Pt will perform WNLs on a standardized balance test to decrease fall risk by 04/02/21. LTG Duration 8 weeks 3 Corporate Law Specialist Goal (LTG) Pt will gait train at least 1200 feet in 6 minutes without AD to improve community ambulation and hiking by . LTG Duration 8 weeks 2 Alf Goal (LTG) Pt will perform progressive HEP with I including pelvic realignment, postural, flexibility, balance, gait and strengthening exercises to improve ROM, pain and strength by 04/02/21. LTG Duration 8 weeks 1 Alf Goal (LTG) Pt will present with an improved LEF score to reflect no more than 30% impairment to improve functional mobility by 04/02/21. LTG Duration 8 weeks Assessment Summary Assessment Pt responded well to ther ex today. Focused on HEP review and added supine and seated core/ glut facilitation using tball with good responses. Cuing required for slower pacing to allow improved quality movement and stabilization with no adverse affects. Physical Therapy Plan Frequency and Duration Frequency of Treatment 2x/Week Duration of Treatment 8 weeks Plan of Care Start Date 01/31/21 Plan of Care End Date 04/04/21 Therapeutic Interventions Therapeutic Interventions Aquatic Therapy,Balance Training,Canalithic Repositioning,Gait Training, Home Exercise Program,Joint Mobilizations,Manual Therapy, Neuromuscular Re-education, Patient/Caregiver Education, Self-Care/Home Management,Soft Tissue Mobilization,Taping, Therapeutic Activities, Therapeutic Exercises Modalities Cold Pack/Ice Massage Next Visit Focus/Plan Next Note Type Treatment Note Next Visit Plan Assess reponse to last tx: supine, seated Tball, HEP revew stretching/ pelvic realignment. Per PT Next tx :Consider upright bike, core work, hip rotator stretch
--- NOTE | 2021-02-25 10:28 | PT.OTN ---
Current Diagnoses Strain of muscle, fascia and tendon of left hip, initial encounter (02/25/21) Strain of unspecified muscle(s) and tendon(s) at lower leg level, left leg, initial encounter (02/25/21) Physical Therapy Treatment Note PT-OP-A Visit Information Start: 01/28/21 15:25 Freq: Status: Active Protocol: Document 02/25/21 09:47 MB (Rec: 02/25/21 10:23 MB [id number]) Out-Patient Physical Therapy Visit Information Visit Information Visit Type Treatment Note Visit Note [facility], Medicare Adv Visit Start Time 09:47 Visit Stop Time 10:25 Total Visit Minutes 38 Visit Number 5 PT-OP-B Current Condition Start: 01/28/21 15:25 Freq: Status: Active Protocol: Document 01/31/21 12:41 MB (Rec: 01/31/21 12:53 MB [id number]) Current Condition History of Current Condition Onset Date 1 year Current Complaints Left upper thigh and knee pain History of Current Condition Pt reports 5/10 left upper thigh and knee pain. She reports 4/10 lateral left hip pain. She had a fall a couple of years ago and injured her right ankle. It got better and then she started having pain with her left leg. Pt is very active and has done yoga most of her adult life. 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 Last summer, she did a 5.5 mile hike in the mountains with younger friends and then had increased pain in her left leg. Pt has the most pain coming downhill. She walks in [facility] 3x/wk and can only walk 1/[address] around. She is playing pickle ball and gets some upper leg paini on the left. She has two flights of steps at home and has to pull herself up with the rail. Walking sticks are a bother as they are noisy. She does not wake up with pain and occ she does have discomfort when rolling over in bed. PMH: essentially negative: hearing loss Prior Treatments and Tests X-ray left hip 01/05/21: mod B hip degeneration X-ray left knee 01/05/21: severe left knee joint degenerative changes which have progressed Treatment Goals Patient/Caregiver Goals To decrease pain PT-OP-C Subjective Start: 01/28/21 15:25 Freq: Status: Active Protocol: Document 02/25/21 09:47 MB (Rec: 02/25/21 10:23 MB [id number]) OP-PT Subjective Patient Comments Patient Comments Pt states that she feels good. She went to [place] and visited her friend and walked a lot and felt great. She played pickle ball for 1.5 hours yesterday and did fine. She has a high copay and is ready to d/c. She will con't with exercises. PT-OP-G Mobility & Gait Start: 01/28/21 15:25 Freq: Status: Active Protocol: Document 01/31/21 12:41 MB (Rec: 01/31/21 15:44 MB [id number]) OP Gait Assessment Gait Gait Assistance Required: Independent Distance (Feet) 70 Able to Maintain Weight Bearing Status Yes During Gait Gait Deviations General Gait Pattern Antalgic,Decreased Stride Length Factors Limiting Gait Function Factors Limiting Gait Function Pain Comments Gait Comments Pt presents with slower, antalgic gait pattern, favoring her left leg. She presents with B knee flexion and forward flexed posture with gait, limited knee and hip extension PT-OP-J Posture/Palpation/Skin Start: 01/28/21 15:25 Freq: Status: Active Protocol: Document 01/31/21 12:41 MB (Rec: 01/31/21 15:44 MB [id number]) Posture Evaluation Comments Posture Comments Standing posture with shoes off: forward head, mild Dowager's hump, increased lumbar lordosis, B knee flexion in standing, anterior tilt pelvis, B overpronation rear feet. From posterior: some lateral curvature cervical spine, left shoulder higher than the right, lower right scapula, right iliac crest higher, left tibial torsion and increased size of left knee compared to the right and increased valgus left. Palpation Assessment Location LEs Palpation Details Increased tension distal left vastus lateralis PT-OP-K Range of Motion Start: 01/28/21 15:25 Freq: Status: Active Protocol: Document 01/31/21 12:41 MB (Rec: 01/31/21 13:27 MB [id number]) Knee Goniometric Range of Motion Knee ROM Limitations Comments Right knee AROM in supine: 11- 136 deg Left knee AROM in supine: 6- 136 deg PT-OP-M Strength Start: 01/28/21 15:25 Freq: Status: Active Protocol: Document 01/31/21 12:41 MB (Rec: 01/31/21 15:44 MB [id number]) Hip Strength Hip Manual Muscle Testing Left Flexion (L2) 4 Good Abduction 4 Good Comments Pt guards passive left hip ER and IR and prevents PT from performing Scour to r/o hip impingement Right Flexion (L2) 5 Normal Abduction 5 Normal Comments Pt guards PROM right ER/IR and both are very limited Knee Strength Knee Manual Muscle Testing Left Flexion (S2) 4 Good Extension (L3) 4 Good Comments Guarding vs pain, pt is not descriptive, does appear to have some left thigh pain Right Flexion (S2) 5 Normal Extension (L3) 5 Normal Ankle/Foot Strength Ankle and Foot Manual Muscle Testing Left Dorsiflexion (L4) 5 Normal Inversion 4 Good Eversion (S1) 5 Normal Right Dorsiflexion (L4) 5 Normal Inversion 5 Normal Eversion (S1) 5 Normal Toe Strength Toe Manual Muscle Testing Left Great Toe Extension 5 Normal Right Great Toe Extension 5 Normal PT-OP-Q Treatments Start: 01/28/21 15:25 Freq: Status: Active Protocol: Document 02/25/21 09:47 MB (Rec: 02/25/21 10:23 MB [id number]) Therapeutic Exercises Standing Exercises Thoracic and hip STM with kids ball behind back Comments Performed today and this is helpful Mini wall squat Comments Several reps, slowly, decreased range, ball behind back Other Exercises Reviewed HEP Comments Reviewed all exercises in preparation for d/c Gait Training Gait Activity 6MWT Comments Pt surpasses goal and gait trains 1262 feet in 6 minutes with good kayla and no evidence of LOB and pt demonstrates this gait pattern through PT treatment Neuro Re-Education Treatment Balance Activities FGA Comments FGA score is normal with score 30/30 PT-OP-T Assessment and Plan Start: 01/28/21 15:25 Freq: Status: Active Protocol: Document 02/25/21 09:47 MB (Rec: 02/25/21 10:23 MB [id number]) Physical Therapy Assessment Rehab Potential Rehabilitation Potential Fair Evaluation Complexity Number of Personal Factors/Comorbidities 1-2 Number of Body Systems Impaired 1-2 Clinical Presentation at Evaluation Evolving Impairments Impairments Activity Tolerance,Balance, Edema,Functional Activities, Functional Mobility,Gait,Pain, Posture,ROM,Soft Tissue Mobility,Strength Other Concerns Fall Risk Yes Goals 4 Penitentiary Goal (LTG) Pt will perform WNLs on a standardized balance test to decrease fall risk by 04/02/21. 02/25/21: FGA score is 30/30 and excellent for her age LTG Duration Met 3 Wrapper Stemmer Operator Goal (LTG) Pt will gait train at least 1200 feet in 6 minutes without AD to improve community ambulation and hiking by . 02/25/21: Goal met: pt gait trains 1262 feet in 6 minutes LTG Duration Met 2 Wrapper Stemmer Operator Goal (LTG) Pt will perform progressive HEP with I including pelvic realignment, postural, flexibility, balance, gait and strengthening exercises to improve ROM, pain and strength by 04/02/21. 02/25/21: Pt is performing pelvic realignment exercises, flexibility exercises, rolling pin massage, yoga exercises LTG Duration Met 1 Wrapper Stemmer Operator Goal (LTG) Pt will present with an improved LEF score to reflect no more than 30% impairment to improve functional mobility by 04/02/21. 02/25/21: LEF score reflects 18. 75% impairment LTG Duration Surpassed Assessment Summary Assessment Pt has met all her goals since starting PT and these include gait, balance, HEP and LEF goals. She has maximized PT potential and is ready to d/c. She will con't HEP. Physical Therapy Plan Discharge Physical Therapy Discharge Reasons Goals Met
== END 2021-02-25 10:59 | disposition home or self-care (01) ==
LOC: PHYS 09:45
PROVIDERS: PCP Family Medicine; Referring Provider Family Medicine; Visit Provider Family Medicine
DX: S86.912A Strain of unspecified muscle(s) and tendon(s) at lower leg level, left leg, initial encounter (principal); S76.012A Strain of muscle, fascia and tendon of left hip, initial encounter
CPT/HCPCS: 97110; 97112; 97116; 97140; 97161

== ENCOUNTER → 2021-06-22 12:12 | Outpatient (CLI) | payer OTHER, SELFPAY ==
--- NOTE | 2021-06-22 12:14 | DI.MRI.S_ITS ---
PROCEDURE: MR HIP LT WO CON INDICATIONS: Unspecified open wound, left hip, initial encounte TECHNIQUE: Noncontrast coronal T1 spin echo and STIR through the bony pelvis. Coronal and axial T2 fast spin echo with fat saturation, sagittal T1 spin echo, and oblique axial T2 fast spin echo with fat saturation through the hip. COMPARISON: None. FINDINGS: BONES AND JOINTS: Osseous structures: No fracture identified. Sacroiliac joints: Unremarkable in signal intensity. Lower lumbar spine: Diffuse spondylosis and facet arthropathy. Joint effusion: Moderate joint effusion Other: No evidence of osteonecrosis. TENDONS AND LIGAMENTS: Gluteus medius and minimus tendons: Mild insertional tendinopathy of gluteus medius and minimus tendons. Proximal iliotibial band: Intact. There is minimal trochanteric edema Iliopsoas tendon: Intact. Origin of the hamstring tendon: Intact. Rectus femoris muscle origins: Intact Ligamentum teres: Intact where visualized. LABRUM: Labrum: Ill-defined tear of the anterosuperior labrum, with adjacent partial-thickness chondral loss, acetabular spurring and sclerosis as well as reactive marrow edema. There is also ill-defined posterior labral tear with adjacent acetabular degenerative sclerosis and spurring as well as partial-thickness chondral loss. Alpha angle of the femur: Within normal limits at less than 55 degrees. SOFT TISSUES: Visualized muscles: Normal bulk and internal signal. Quadratus femoris muscle: Normal. Proximal sciatic neurovascular bundle: Normal adjacent to the hamstring tendons. Other: No pelvic free fluid. Bladder: Normal. Genitourinary structures and bowel loops: Normal where visualized. IMPRESSION: Moderate left hip joint effusion Ill-defined tear of the anterosuperior and posterior labrum with adjacent partial-thickness chondral loss and chronic degenerative changes in the acetabulum. Mild insertional hip abductor tendinopathy Minimal trochanteric edema Dictated by: Stanton Doss M.D. on 06/22/2021 at 13:39 Approved by: Stanton Doss M.D. on 06/22/2021 at 14:01
== END ==
PROVIDERS: PCP Family Medicine; Referring Provider Orthopaedic Surgery; Visit Provider Orthopaedic Surgery
DX: S71.002A Unspecified open wound, left hip, initial encounter (principal); M25.452 Effusion, left hip
CPT/HCPCS: 73721

== ENCOUNTER → 2021-12-09 16:04 | Outpatient (CLI) | payer OTHER, SELFPAY ==
--- NOTE | 2021-12-09 | DI.MG.S_ITS ---
BILATERAL DIGITAL SCREENING MAMMOGRAM 3D/2D WITH CAD POST LUMPECTOMY: 12/09/2021 CLINICAL: Routine screening. Personal history of left breast cancer. Comparison is made to exams dated: 12/08/2020 mammogram, 12/01/2019 mammogram, and 12/06/2015 mammogram - [facility]. There are scattered fibroglandular elements in both breasts. Current study was also evaluated with a Computer Aided Detection (CAD) system. The left breast has post-operative findings. There is a possible developing 0.3 cm oval equal density asymmetry in the right breast middle depth superior region seen on the mediolateral oblique view only. This is more prominent and increased in size. No other significant masses, calcifications, or other findings are seen in either breast. IMPRESSION: INCOMPLETE: NEEDS ADDITIONAL IMAGING EVALUATION The possible developing 0.3 cm oval equal density asymmetry in the right breast is indeterminate. Additional views with possible ultrasound are recommended. This exam was interpreted at Station ID: [id number]. NOTE: For mammograms, a report in lay terms will be sent to the patient. Approximately 15% of breast malignancies will not be visualized mammographically. In the management of a palpable breast mass, a negative mammogram must not discourage biopsy of a clinically suspicious lesion. Electronically Signed By: Addy Larios M.D. aty/:12/09/2021 18:12:44 letter sent: Additional Imaging Needed ACR BI-RADS Category 0: Incomplete 3340F
== END ==
PROVIDERS: PCP Family Medicine; Referring Provider Family Medicine; Visit Provider Family Medicine
DX: Z12.31 Encounter for screening mammogram for malignant neoplasm of breast (principal); Z85.3 Personal history of malignant neoplasm of breast
CPT/HCPCS: 77063; 77067

== ENCOUNTER → 2022-01-13 08:41 | Outpatient (CLI) | payer OTHER, SELFPAY ==
--- NOTE | 2022-01-13 | DI.MG.S_ITS ---
UNILATERAL RIGHT DIGITAL DIAGNOSTIC MAMMOGRAM 3D/2D WITH ADDITIONAL VIEWS: 01/13/2022 CLINICAL: Additional evaluation requested from prior study. Comparison is made to exams dated: 12/09/2021 mammogram, 12/08/2020 mammogram, and 12/01/2019 mammogram - [facility]. There are scattered fibroglandular elements in right breast. The possible developing 0.3 cm oval equal density asymmetry in the right breast middle depth superior region seen on the mediolateral oblique view only is no longer seen and most likely was overlapping fibroglandular tissue. This is not seen in additional views. No other significant masses or calcifications are seen in the breast. IMPRESSION: PROBABLY BENIGN Resolution of right breast screening mammography abnormality with additional views. A follow-up in 6 months is recommended to stability or continued resolution of the asymmetry in the right breast middle depth. Findings and recommendations were conveyed to the patient at time of exam. This exam was interpreted at Station ID: [id number]. NOTE: For mammograms, a report in lay terms will be sent to the patient. Approximately 15% of breast malignancies will not be visualized mammographically. In the management of a palpable breast mass, a negative mammogram must not discourage biopsy of a clinically suspicious lesion. Electronically Signed By: Savanna meeks/:01/13/2022 09:34:00 letter sent: Followup Recommended ACR BI-RADS Category 3: Probably benign 3343F
== END ==
PROVIDERS: PCP Family Medicine; Referring Provider Family Medicine; Visit Provider Family Medicine
DX: R92.8 Other abnormal and inconclusive findings on diagnostic imaging of breast (principal)
CPT/HCPCS: 77065; G0279

== ENCOUNTER → 2022-03-08 12:16 | Outpatient (CLI) | payer OTHER, SELFPAY ==
--- NOTE | 2022-03-08 13:17 | DI.RAD.S_ITS ---
PROCEDURE: XR CHEST 2V INDICATIONS: Shortness of breath TECHNIQUE: 2 views of the chest were acquired. C.OMPARISON: [facility], , CHEST 2 VIEW, 03/23/2015, 10:19. FINDINGS: Surgical changes and devices: Left axillary surgical clips. Lungs and pleura: Lungs are clear. No pleural effusions or pneumothorax. Mediastinum: Mediastinal contours are normal. Heart size is normal. Bones and chest wall: No suspicious bony abnormalities. Soft tissues appear unremarkable. IMPRESSION: No source for shortness of breath identified radiographically Dictated by: Jaron Zhao RRA Interpreted: Jesse Epps MD on 03/08/2022 at 14:23 Transcribed by: JAIME on 03/08/2022 at 14:24 Approved by: Jesse Epps M.D. on 03/08/2022 at 15:15
[2022-03-08 14:31] LABS: Add Manual Diff / Slide Review NO; Basophils Absolute Auto 0 /uL (0-100); Basophils Percent Auto 0.4 % (0-2); Eosinophils Absolute Auto 100 /uL (0-450); Eosinophils Percent Auto 1.4 % (2-4); Hematocrit 39.7 % (36-46); Hemoglobin 13.5 g/dL (12.0-16.0); Lymphocytes Absolute Auto 1600 /uL (1100-4500); Lymphocytes Percent Auto 28.1 % (25-40); Mean Corpuscular HGB Conc 33.9 % (30-36); Mean Corpuscular Hemoglobin 31.2 PG (26-34); Monocytes Absolute Auto 500 /uL (0-900); Monocytes Percent Auto 9.7 % (3-14); Neutrophils Absolute Auto 3400 /uL (1500-7000); Neutrophils Percent Auto 60.4 % (50-75); Platelet Count 252 X10^3/uL (150-400); Red Blood Cell Count 4.31 X10^6/uL (4.0-5.2); Red Cell Distribution Width 13.8 % (11.6-14.8); White Blood Cell Count 5.6 X10^3/uL (4.5-11.0)
[2022-03-08 15:38] LABS: Alanine Aminotransferase 18 IU/L (<35); Albumin 4.2 g/dL (3.5-5.0); Albumin Globulin Ratio 1.2 (1.0-2.8); Alkaline Phosphatase 85 U/L (38-126); Aspartate Aminotransferase 32 IU/L (14-36); BUN Creatinine Ratio 28.3 (6-22); Bilirubin Total 0.4 mg/dL (0.2-1.3); Blood Urea Nitrogen 17 mg/dL (7-17); Calcium 8.5 mg/dL (8.4-10.2); Carbon Dioxide 26 mmol/L (22-32); Chloride 102 mmol/L (98-107); Estimated Glomerular Filt Rate > 60 mL/min (>60); Globulin 3.5 g/dL (1.7-4.1); Glucose 96 mg/dL (80-110); HEMOLYSIS < 15 (0-50); Potassium 4.3 mmol/L (3.4-5.1); Sodium 137 mmol/L (137-145); Total Protein 7.7 g/dL (6.3-8.2)
[2022-03-08 15:46] LABS: NT-proBNP (BNP-Adult 18+) 43 pg/mL (<450)
[2022-03-08 16:46] LABS: TSH w/ Reflex to FT4 1.67 uIU/mL (0.47-4.68)
== END ==
PROVIDERS: PCP Family Medicine; Referring Provider Family Medicine; Visit Provider Family Medicine
DX: R53.83 Other fatigue (principal); R06.02 Shortness of breath
CPT/HCPCS: 36415; 71046; 80053; 83880; 84443; 85025

== ENCOUNTER → 2022-07-17 13:25 | Outpatient (CLI) | payer OTHER, SELFPAY ==
--- NOTE | 2022-07-17 13:27 | DI.MG.S_ITS ---
UNILATERAL RIGHT DIGITAL DIAGNOSTIC MAMMOGRAM 3D/2D POST LUMPECTOMY: 07/17/2022 CLINICAL: Short term follow up of the right breast. Comparison is made to exams dated: 12/09/2021 mammogram, 01/13/2022 mammogram, 12/08/2020 mammogram, 12/01/2019 mammogram, and 12/06/2015 mammogram - [facility]. There are scattered areas of fibroglandular density in the right breast (category b / 25%-50% glandular tissue). The possible oval equal density asymmetry in the right breast middle depth superior region seen on the mediolateral oblique view only is no longer seen and is consistent with fibroglandular tissue. No other significant masses or calcifications are seen in the breast. IMPRESSION: BENIGN There is no mammographic evidence of malignancy. Return to annual mammogram screening schedule is recommended. This exam was interpreted at Station ID: [id number]. NOTE: For mammograms, a report in lay terms will be sent to the patient. Approximately 15% of breast malignancies will not be visualized mammographically. In the management of a palpable breast mass, a negative mammogram must not discourage biopsy of a clinically suspicious lesion. Electronically Signed By: Danny petit/ruthann:07/17/2022 16:47:21 letter sent: Normal Exam ACR BI-RADS Category 2: Benign Finding(s) 3342F
== END ==
PROVIDERS: PCP Family Medicine; Referring Provider Family Medicine; Visit Provider Family Medicine
DX: R92.8 Other abnormal and inconclusive findings on diagnostic imaging of breast (principal); N63.10 Unspecified lump in the right breast, unspecified quadrant
CPT/HCPCS: 77065; G0279

== ENCOUNTER → 2023-01-04 10:01 | Outpatient (CLI) | payer OTHER, SELFPAY ==
--- NOTE | 2023-01-04 10:02 | DI.MG.S_ITS ---
BILATERAL DIGITAL SCREENING MAMMOGRAM 3D/2D WITH CAD: 01/04/2023 CLINICAL: Routine screening. Personal history of left breast cancer. Family history of breast cancer. Comparison is made to exams dated: 12/09/2021 mammogram, 12/08/2020 mammogram, and 12/01/2019 mammogram - [facility]. There are scattered areas of fibroglandular density in both breasts (category b / 25%-50% glandular tissue). Current study was also evaluated with a Computer Aided Detection (CAD) system. There are benign calcifications in the left breast. There also are benign post operative findings in the left breast. There is a new cluster of punctate calcifications in the right breast at 8 o'clock posterior depth. No other significant masses, calcifications, or other findings are seen in either breast. IMPRESSION: INCOMPLETE: NEEDS ADDITIONAL IMAGING EVALUATION The new cluster of punctate calcifications in the right breast is indeterminate. Magnification views as well as additional views with possible ultrasound are recommended. This exam was interpreted at Station ID: [id number]. NOTE: For mammograms, a report in lay terms will be sent to the patient. Approximately 15% of breast malignancies will not be visualized mammographically. In the management of a palpable breast mass, a negative mammogram must not discourage biopsy of a clinically suspicious lesion. Electronically Signed By: Austin Pina M.D. acr/:01/04/2023 11:58:57 letter sent: Additional Imaging Needed ACR BI-RADS Category 0: Incomplete [id number]
== END ==
PROVIDERS: PCP Family Medicine; Referring Provider Family Medicine; Visit Provider Family Medicine
DX: Z12.31 Encounter for screening mammogram for malignant neoplasm of breast (principal); Z85.3 Personal history of malignant neoplasm of breast; Z80.3 Family history of malignant neoplasm of breast; Z98.890 Other specified postprocedural states
CPT/HCPCS: 77063; 77067

== ENCOUNTER → 2023-01-24 09:30 | Outpatient (CLI) | payer OTHER, SELFPAY ==
--- NOTE | 2023-01-24 09:31 | DI.MG.S_ITS ---
UNILATERAL RIGHT DIGITAL DIAGNOSTIC MAMMOGRAM 3D/2D WITH ADDITIONAL VIEWS: 01/24/2023 CLINICAL: Additional evaluation requested from prior study. Comparison is made to exams dated: 01/04/2023 mammogram, 07/17/2022 mammogram, 01/13/2022 mammogram, and 12/09/2021 mammogram - [facility]. There are scattered areas of fibroglandular density in the right breast (category b / 25%-50% glandular tissue). There is a 0.5 cm oval mass with grouped calcifications in the right breast at 9 o'clock posterior depth 6 cm from the nipple. This is seen in additional views. No other significant masses or calcifications are seen in the breast. IMPRESSION: INCOMPLETE: NEEDS ADDITIONAL IMAGING EVALUATION The 0.5 cm oval mass in the right breast at 9 o'clock posterior depth with grouped calcifications is indeterminate. An ultrasound is recommended. This exam was interpreted at Station ID: [id number]. NOTE: For mammograms, a report in lay terms will be sent to the patient. Approximately 15% of breast malignancies will not be visualized mammographically. In the management of a palpable breast mass, a negative mammogram must not discourage biopsy of a clinically suspicious lesion. Electronically Signed By: Jackson Germain M.D. lc/:01/24/2023 10:34:58 ACR BI-RADS Category 0: Incomplete [id number]
--- NOTE | 2023-01-24 09:31 | DI.US.S_ITS ---
ULTRASOUND OF RIGHT BREAST AND AXILLA: 01/24/2023 CLINICAL: Patient returns today to evaluate a focal asymmetry in the right breast. Comparison is made to exams dated: 01/24/2023 mammogram, 01/04/2023 mammogram, 07/17/2022 mammogram, 01/13/2022 mammogram, 12/09/2021 mammogram, and 12/08/2020 mammogram - [facility]. Ultrasound of the right breast axilla was performed. There is a 0.5 cm x 0.5 cm x 0.4 cm oval mass in the right breast at 9 o'clock posterior depth 6 cm from the nipple. This oval mass is hypoechoic. This correlates with mammogram. There also is a benign 1 cm x 0.4 cm x 0.8 cm oval micro cyst in the right breast at 8 o'clock posterior depth 2 cm from the nipple. This correlates as an incidental finding. No significant abnormalities were seen sonographically in the right axilla. IMPRESSION: SUSPICIOUS OF MALIGNANCY The 0.5 cm x 0.5 cm x 0.4 cm oval mass in the right breast at 9 o'clock posterior depth is at a low suspicion for malignancy. An ultrasound guided biopsy is recommended. Attention on post-clip images to ensure corresponds to the oval mass with calcifications seen at posterior depth on the mammogram. The 1 cm x 0.4 cm x 0.8 cm oval micro cyst in the right breast at 8 o'clock posterior depth is benign. No significant abnormalities were seen sonographically in the right axilla. This exam was interpreted at Station ID: [id number]. Electronically Signed By: Jackson Germain M.D. lc/:01/24/2023 10:38:58 letter sent: Biopsy Required Ultrasound BI-RADS: 4a Low suspicion for malignancy
== END ==
PROVIDERS: PCP Family Medicine; Referring Provider Family Medicine; Visit Provider Family Medicine
DX: R92.8 Other abnormal and inconclusive findings on diagnostic imaging of breast (principal); R92.1 Mammographic calcification found on diagnostic imaging of breast; N63.15 Unspecified lump in the right breast, overlapping quadrants; N60.01 Solitary cyst of right breast
CPT/HCPCS: 76642; 77065; G0279

== ENCOUNTER → 2023-02-08 08:43 | Outpatient (CLI) | payer OTHER, SELFPAY ==
--- NOTE | 2023-02-08 | DI.MG.S_ITS ---
UNILATERAL RIGHT DIGITAL DIAGNOSTIC MAMMOGRAM 3D/2D: 02/08/2023 CLINICAL: Right post clip. Comparison is made to exams dated: 01/24/2023 ultrasound, 01/24/2023 mammogram, 01/04/2023 mammogram, and 07/17/2022 mammogram - [facility]. There are scattered areas of fibroglandular density in the right breast (category b / 25%-50% glandular tissue). A biopsy marker is noted in the right breast at the biopsy site. No significant masses, calcifications, or other findings are seen in the breast. IMPRESSION: POST PROCEDURE MAMMOGRAM FOR MARKER PLACEMENT A biopsy marker is at the biopsy site. This exam was interpreted at Station ID: [id number]. NOTE: For mammograms, a report in lay terms will be sent to the patient. Approximately 15% of breast malignancies will not be visualized mammographically. In the management of a palpable breast mass, a negative mammogram must not discourage biopsy of a clinically suspicious lesion. Electronically Signed By: Leatha Ravi M.D. fx/:02/08/2023 15:30:43 ACR BI-RADS Category Post-procedure mammogram for marker placement
--- NOTE | 2023-02-08 | PATH_ITS ---
[facility] Accession Number: [id number] No. of containers..01 Tissue . 01 Material submitted: . breast - RIGHT BREAST 9:00 6CMFN MASS . 01 Diagnosis: A. Right Breast, 9 o'clock, 6 cm from Nipple, Mass, Biopsy: Atypical ductal hyperplasia involving intraductal papilloma. Microcalcifications associated with intraductal papilloma and with benign breast tissue. Negative for invasive malignancy. MRV 02/15/2023 1514 Local . 01 Electronically signed: . Susana Cheema MD, Pathologist NPI- [id number] . 01 Gross description: . Received in one formalin-filled container, labeled with the patient's name and right breast 9 o'clock 6 cm FN, are multiple fragments of yellow-davis to davis-gillis soft tissue which range in size from 0.1 x 0.1 x 0.1 cm to 0.9 x 0.1 x 0.1 cm. All fragments are totally submitted in one cassette. Possible collection date and time per requisition: 02/08/23 at 10:20. Total fixation time: Approximately 16 hours. ([id number]) /DELPHINE 02/09/2023 0245 Local . 01 Microscopic: . A panel of immunostains is obtained on the morphologically and architecturally atypical proliferation within the intraductal papilloma, with appropriately staining external controls. The atypical proliferation within the intraductal papilloma demonstrates the following immunoprofile: . CK5/6: Lost, in support of neoplasia/ADH. ER: Overexpressed, in support of neoplasia/ADH. . Deeper levels are also examined. . * This test was developed and its performance characteristics determined by [employer]. It has not been cleared or approved by the U.S. Food and Drug Administration. The FDA has determined that such clearance or approval is not necessary. This test is used for clinical purposes. It should not be regarded as investigational or for research. . 01 Pathologist provided ICD-10: N60.81 . 01 CPT . 591942, L88999, M34909 Performed at: 01 [facility] [address] [place] [address], [place], [place] [id number] MD Nathaniel Felix MD Phone: [phone]
--- NOTE | 2023-02-08 08:43 | DI.US.S_ITS ---
ULTRASOUND GUIDED BIOPSY RIGHT BREAST WITH POST MAMMOGRAPHIC AND ULTRASOUND IMAGIN02/08/2023 CLINICAL: Right breast mass. PATIENT CONSENT: Risks (minor bleeding, infection, vasovagal reaction and repeat procedure), benefits and alternatives were explained to the patient and written informed consent was obtained. Correlation is made to exams dated: 02/08/2023 mammogram, 01/24/2023 mammogram, 01/24/2023 ultrasound, 01/04/2023 mammogram, 07/17/2022 mammogram, and 01/13/2022 mammogram - [facility]. An ultrasound guided biopsy using real-time ultrasound was performed for the 0.5 cm oval mass located in the right breast at 9 o'clock posterior depth. This was described on the previous ultrasound report. The skin was prepped in the usual manner. Local anesthetic was administered to the access site. The abnormality was approached from the lateral aspect. An 18 gauge biopsy needle was placed adjacent to the abnormality under ultrasound guidance. Once the needle was documented to be in the correct location, five specimens were obtained using an Achieve automated firing device. Post procedure mammographic and ultrasound imaging demonstrates the clip at the targeted area. The specimens were sent to the laboratory for pathological analysis. IMPRESSION: ULTRASOUND GUIDED BIOPSY HIGH RISK BENIGN Ultrasound guided biopsy of the 0.5 cm mass in the right breast posterior depth was successful. 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 Pathology results are concordant with imaging findings. A surgical consultation is recommended. A follow-up ultrasound in 6 months is recommended to demonstrate stability. This exam was interpreted at Station ID: [id number]. Leatha Hughes M.D. [place] [place]02/16/2023 14:58:53
== END ==
PROVIDERS: PCP Family Medicine; Referring Provider Family Medicine; Visit Provider Family Medicine
DX: D24.1 Benign neoplasm of right breast (principal); N60.91 Unspecified benign mammary dysplasia of right breast
CPT/HCPCS: 19083; 77065

== ENCOUNTER 2023-04-18 16:16 | Emergency (ER) | payer OTHER, SELFPAY ==
[2023-04-18 16:20] VITALS: BP 170/79; PULSE 69; RESP 16; TEMP 36.9; O2SAT 98; BMI 22.8
--- NOTE | 2023-04-18 16:37 | ED_ITS ---
HPI - Eye Problem <TALHA Mccoy - Last Filed: 04/18/23 17:29> General Chief complaint: Eye Problems Stated complaint: rt eye is very painful, NKI Time Seen by Provider: 04/18/23 16:25 Source: patient Mode of arrival: Ambulatory History of Present Illness HPI Narrative: This is an 81-year-old female presents to the emergency department for right eye pain, states it feels like fire. She had applied some burn cream to postsurgical lesion just below her eye earlier today and states it likely got in her eye or caused it to start tearing, she rubbed her eye and then developed burning pain. She states that it is so painful she can barely open her eye. Denies vision loss or vision changes but was sent over from the walk-in clinic for evaluation of this new burning pain in her eye. Related Data Home Medications Medication Instructions Recorded Confirmed ASCORBIC ACID (VITAMIN C) 1,000 mg PO Q DAY ##0 11/13/12 03/12/23 COENZYME Q10/VITAMIN E (CO-Q-10 100 mg PO QDAY ##0 11/13/12 03/12/23 100mg) VITAMIN B COMPLEX (Vitamin B 1 tab PO QDAY ##0 11/13/12 03/12/23 Complex) VITAMIN D (Vitamin D3) 1,000 unit PO QDAY ##0 11/13/12 03/12/23 Vitamin E (VITAMIN E) 400 units PO QDAY ##0 11/13/12 03/12/23 [joint advantage] ##0 04/18/13 03/12/23 Allergies Allergy/AdvReac Type Severity Reaction Status Date / Time No Known Drug Allergies Allergy Verified 03/12/23 13:29 Review of Systems <TALHA Mccoy - Last Filed: 04/18/23 17:29> Review of Systems ROS Unobtainable: All systems reviewed & are unremarkable except as noted in HPI and below Patient History <TALHA Mccoy - Last Filed: 04/18/23 17:29> Medical History Fatigue Hearing loss Surgical History Status post surgery (06/02/15) Status post tonsillectomy and adenoidectomy Social History Smoking Status: Never smoker Smoking Status: Never smoker alcohol intake frequency: 0-2 drinks per day Alcohol type: wine Substance Use Type: does not use Exam <TALHA Mccoy - Last Filed: 04/18/23 17:29> Narrative Exam Narrative: Reviewed vitals signs and nursing notes. General: Pleasant, sitting upright, in no acute distress, well groomed, afebrile HEENT: symmetrical facial expressions, moist mucous membranes, neck is supple, f luorescein exam is significant for a small conjunctival abrasion approximately 03:00 o'clock from iris and just lateral to the cornea. Patient's healing wound is is approximately at for clock over the lower orbital rim, no discharge, no open wound, it is covered in scar tissue. Skin: brisk capillary refill, without rash or wound Neuro: clear speech and normal cognition, A&O x3, GCS 15, no focal motor or sensation deficits Initial Vital Signs Initial Vital Signs: Vital Signs Temperature 98.5 F 04/18/23 16:20 Pulse Rate 69 04/18/23 16:20 Respiratory Rate 16 04/18/23 16:20 Blood Pressure 170/79 H 04/18/23 16:20 Pulse Oximetry 98 04/18/23 16:20 Oxygen Delivery Method Room Air 04/18/23 16:20 <Igor Haywood DO - Last Filed: 04/18/23 17:57> Initial Vital Signs Initial Vital Signs: Vital Signs Temperature 98.5 F 04/18/23 16:20 Pulse Rate 69 04/18/23 16:20 Respiratory Rate 16 04/18/23 16:20 Blood Pressure 170/79 H 04/18/23 16:20 Pulse Oximetry 98 04/18/23 16:20 Oxygen Delivery Method Room Air 04/18/23 16:20 Course <TALHA Mccoy - Last Filed: 04/18/23 17:29> Orders Ordered: Discontinued Medications Erythromycin (Erythromycin Ophth 1 Gm Oint) 1 applic EYE-RIGHT NOW ONE Stop: 04/18/23 17:01 Last Admin: 04/18/23 17:03 Dose: 1 applic Documented By: INES Fluorescein Sodium (Fluorescein 1 Mg Strip) 1 mg EYE-RIGHT NOW ONE Stop: 04/18/23 16:31 Last Admin: 04/18/23 16:40 Dose: 1 mg Documented By: AT Proparacaine HCl (Proparacaine 0.5% Ophth Liset) 1 drops EYE-RIGHT NOW ONE Stop: 04/18/23 16:31 Last Admin: 04/18/23 16:39 Dose: 1 drop Documented By: AT Vital Signs Vital signs: Vital Signs - 8 hr 04/18/23 16:20 Temperature 98.5 F Pulse Rate 69 Respiratory Rate 16 Blood Pressure 170/79 H Pulse Oximetry 98 Oxygen Delivery Method Room Air <Igor Haywood DO - Last Filed: 04/18/23 17:57> Orders Ordered: Discontinued Medications Erythromycin (Erythromycin Ophth 1 Gm Oint) 1 applic EYE-RIGHT NOW ONE Stop: 04/18/23 17:01 Last Admin: 04/18/23 17:03 Dose: 1 applic Documented By: INES Fluorescein Sodium (Fluorescein 1 Mg Strip) 1 mg EYE-RIGHT NOW ONE Stop: 04/18/23 16:31 Last Admin: 04/18/23 16:40 Dose: 1 mg Documented By: AT Proparacaine HCl (Proparacaine 0.5% Ophth Liset) 1 drops EYE-RIGHT NOW ONE Stop: 04/18/23 16:31 Last Admin: 04/18/23 16:39 Dose: 1 drop Documented By: AT Vital Signs Vital signs: Vital Signs - 8 hr 04/18/23 16:20 Temperature 98.5 F Pulse Rate 69 Respiratory Rate 16 Blood Pressure 170/79 H Pulse Oximetry 98 Oxygen Delivery Method Room Air MDM - Eye Problem <TALHA Mccoy - Last Filed: 04/18/23 17:29> MDM Narrative Medical decision making narrative: Chief Complaint: Right eye burning and pain Primary historian: Patient Multiple etiologies for patient's complaint considered including, but not limited to: Conjunctival abrasion, corneal abrasion, chemical eye burn I have independently reviewed the patient's vital signs and nursing notes as well as prior records if available. Course of care: Fluorescein exam is significant for a very small conjunctival abrasion approximately 03:00 o'clock to the right eye. She was given erythromycin ointment and encouraged to use this 4 times a day for the next 3-5 days as needed. No visual deficit, patient has normal visual acuity bilaterally without deficit after proparacaine. No foreign body, I think this is partially came the burn/irritation which then was rubbed and she caused the conjunctival abrasion. Normal EOMI, PERRLA, no other deficits or abnormal findings. She is encouraged to use plain saline tears as needed for hydration to return to the emergency department for any worsening symptoms. Social considerations that may affect disposition: none Questions are addressed and there is agreement with the plan and for follow-up. I consulted with the ED attending physician Dr. Haywood as needed for higher level of care considerations and they were available for discussion and recommendations regarding plan of care and diagnostic testing. Patient is appropriate for outpatient management. Discharge Plan Departure Patient Disposition: Home Clinical Impression: Abrasion of conjunctiva, right Qualifiers: Encounter type: initial encounter Qualified Code(s): S05.01XA - Injury of conjunctiva and corneal abrasion without foreign body, right eye, initial encounter Instructions: DI for Corneal Abrasion, DI for Chemical Eye Burn Activity Restrictions/Additional Instructions: *You have been diagnosed with an abrasion of the white part of your eye-the conjunctiva, there is no corneal abrasion however they are treated similarly. Please use the ointment 4 times a day for the next 3-5 days as long as it is helpful. This will act as a lubricant and prevent infection to the abrasion. Please avoid getting the burn cream in your eye, please follow your Surgeons directions regarding scar treatment but keep this ointment at a distance from the eye, if it has an odor it can cause tearing and irritation to the eye. If you are having irritation to the eye, you may also use saline tears without preservatives and no eye drops for red eyes, Only plain saline. I hope you have a better rest of your day, I am sorry that this was as painful as it was. It should heal quickly. *What to do: *Please continue to take your regular medications as directed. [ ] New medication prescriptions sent to your pharmacy: [ ] [ ] New medication written as a paper prescription [x ] No new medications given you have been given erythromycin in the emergency department. *Please call and schedule follow up with your primary care provider in 2-3 days, at least for an update. Let them know you were seen in the Emergency Department for the above problem. We will electronically transmit a record of today's note if your PCP or specialist is in our system. *If you do not have a primary care provider please contact [phone] to establish care with one of the [facility] primary care providers. *Return to the Emergency Department for worsening symptoms, inability to keep liquids down, fever greater than 101F, chills, or other concerning symptom. Prescriptions: No Action ASCORBIC ACID (VITAMIN C) 1,000 mg PO Q DAY Qty: 0 VITAMIN B COMPLEX (Vitamin B Complex) 1 tab PO QDAY Qty: 0 VITAMIN D (Vitamin D3) 1,000 unit PO QDAY Qty: 0 COENZYME Q10/VITAMIN E (CO-Q-10 100mg) 100 mg PO QDAY Qty: 0 Vitamin E (VITAMIN E) 400 units PO QDAY Qty: 0 [joint advantage] Qty: 0 Referrals: Sidney Rooney MD [Primary Care Provider] - Stand Alone Forms: Patient Portal/API <Igor Haywood, DO - Last Filed: 04/18/23 17:57> Cosign ED Attending Cosignature Attestation: Dr Haywood Co-Sign Statement: I was available for consultation during this patient's emergency department visit. This chart is signed by myself for administrative purposes only. I did not have direct contact with this patient during this visit. They were seen independently by the APC.
[2023-04-18] MEDS: PROPARACAINE 0.5% OPHTH SOL 1 DROPS EYE-RIGHT (16:39)
[2023-04-18] MEDS: FLUORESCEIN 1 MG STRIP EYE-RIGHT (16:40)
[2023-04-18] MEDS: ERYTHROMYCIN OPHTH 1 GM OINT 1 APPLIC EYE-RIGHT (17:03)
== END 2023-04-18 17:14 | disposition home or self-care (01) ==
PROVIDERS: Emergency Provider Nurse Practitioner Critical Care Medicine; PCP Family Medicine
DX: S05.01XA Injury of conjunctiva and corneal abrasion without foreign body, right eye, initial encounter (principal); X58.XXXA Exposure to other specified factors, initial encounter
CPT/HCPCS: 99282

== ENCOUNTER → 2023-08-23 12:16 | Outpatient (CLI) | payer OTHER, SELFPAY ==
--- NOTE | 2023-08-23 12:17 | DI.US.S_ITS ---
LIMITED ULTRASOUND OF RIGHT BREAST AND AXILLA: 08/23/2023 CLINICAL: 6 month follow-up -right. Comparison is made to exams dated: 02/08/2023 mammogram, 02/08/2023 ultrasound biopsy, 01/24/2023 ultrasound, 01/24/2023 mammogram, 01/04/2023 mammogram, and 07/17/2022 mammogram - [facility]. Color flow and real-time ultrasound of the right breast 8 o'clock, and axilla regions were performed. Crabtree scale images of the real-time examination were reviewed. The mass in the right breast at 9 o'clock posterior depth is no longer seen. This correlates with the previous biopsy. There also is a 0.7 cm x 0.5 cm x 0.4 cm oval cyst in the right breast at 8 o'clock anterior depth 2 cm from the nipple. This oval cyst is hypoechoic. This abnormality is increased in size and correlates as an incidental finding. Color flow imaging demonstrates that there is no vascularity present. This is adjacent to the previously seen anechoic cyst or duct. No significant abnormalities were seen sonographically in the right axilla. IMPRESSION: PROBABLY BENIGN The 0.7 cm complicated cyst in the right breast at 8 o'clock 2 cm from the nipple is probably benign. Previously biopsied mass at 9:00 6 cm from the nipple is no longer seen. Previous biopsy demonstrated ADH and atypical papilloma. No enlarged right axillary lymph nodes. A follow-up ultrasound in 6 months is recommended to demonstrate stability. Patient will be due for mammogram at that time. Exam findings were conveyed to the patient. This exam was interpreted at Station ID: [id number]. Electronically Signed By: Jose Hughes M.D. [facility] [place]/:08/23/2023 13:31:24 letter sent: Followup Recommended Ultrasound BI-RADS: 3 Probably benign
== END ==
PROVIDERS: PCP Family Medicine; Referring Provider Family Medicine; Visit Provider Family Medicine
DX: R92.8 Other abnormal and inconclusive findings on diagnostic imaging of breast (principal); N60.91 Unspecified benign mammary dysplasia of right breast; N60.01 Solitary cyst of right breast
CPT/HCPCS: 76642

== ENCOUNTER → 2023-09-27 10:38 | Outpatient (CLI) | payer OTHER, SELFPAY ==
--- NOTE | 2023-09-27 10:39 | DI.RAD.S_ITS ---
PROCEDURE: XR HIP W PEL IF DONE LT 2V INDICATIONS: chronic left hip pain TECHNIQUE: AP pelvis with lateral view(s) of the left hip(s). COMPARISON: [facility], CR, XR HIP W PEL IF DONE JOHN 3TO4V, 01/05/2021, 11:27. FINDINGS: Bones: No acute fracture or dislocation. There is moderate bilateral hip joint space narrowing. There are moderate-sized bilateral collar osteophytes. Findings are slightly more severe on the left than on the right. Soft tissues: The visualized bowel gas pattern is normal. No suspicious soft tissue calcifications. IMPRESSION: Moderate bilateral hip osteoarthritis, slightly more severe on the left. Dictated by: Khloe Baires M.D. on 09/27/2023 at 13:46 Approved by: Khloe Baires M.D. on 09/27/2023 at 13:47
== END ==
PROVIDERS: PCP Family Medicine; Referring Provider Family Medicine; Visit Provider Family Medicine
DX: M16.0 Bilateral primary osteoarthritis of hip (principal)
CPT/HCPCS: 73502